=== PATIENT | male | born 1940 | race Caucasian/White ===

== ENCOUNTER 2018-02-28 19:02 | Inpatient (IN) | payer MEDICARE ==
--- NOTE | 2018-02-28 19:16 | ED Physician Chart ---
ED Chief Complaint/HPI - Patient Information Date Seen:: 02/28/18 Time Seen:: 18:45 Chief Complaint:: Agitation History of Present Illness:: onset x 2 days of agitation and aggressive behavior; no report of trauma, H/As, S/T, neck pain, C/P, SOB, Abd. Pain, A/N/V/D/C, SIs, fever, chills, or urinary s /s Historian:: Patient, EMS Review:: Nurse's Note Reviewed, Old Chart Reviewed, EMS run form Reviewed ED Review of Systems - Review of Systems General/Constitutional: No fever, No chills, No weight loss, No weakness, No diaphoresis, No edema, No loss of appetite Skin: No skin lesions, No rash, No bruising Head: No headache, No light-headedness Eyes: No loss of vision, No pain, No diplopia ENT: No earache, No nasal drainage, No sore throat, No tinnitus Neck: No neck pain, No swelling, No thyromegaly, No stiffness, No mass noted Cardio Vascular: No chest pain, No palpitations, No PND, No orthopnea, No edema Pulmonary: No SOB, No cough, No sputum, No wheezing GI: No nausea, No vomiting, No diarrhea, No pain, No melena, No hematochezia, No constipation, No hematemesis G/U: No dysuria, No frequency, No hematuria, No nacturia Musculoskeletal: No bone or joint pain, No back pain, No muscle pain Endocrine: No polyuria, No polydipsia Psychiatric: Prior psych history, Depression, Anxiety, No suicidal ideation, No homicidal ideation, No auditory hallucination, No visual hallucination Hematopoietic: No bruising, No lymphadenopathy Allergic/Immuno: No urticaria, No angioedema Neurological: No syncope, No focal symptoms, No weakness, No paresthesia, No headache, No seizure, No dizziness, Confusion, No vertigo ED Past Medical History - Past Medical History Obtainable: Yes Past Medical History: HTN, Dyslipidemia, Dementia Family History: HTN Social History: Non Smoker, No Alcohol, No Drug Use, , Care Facility Surgical History: None Psychiatricy History: Depression, Bipolar, Dementia Medication: Reviewed ED Physical Exam - Physical Examination General/Constitutional: Awake, Well-developed, well-nourished, Alert, No distress, GCS 15, Non-toxic appearing, Ambulatory Head: Atraumatic Eyes: Lids, conjuctiva normal, PERRL, EOMI Skin: Nl inspection, No rash, No skin lesions, No ecchymosis, Well hydrated, No lymphadenopathy ENMT: External ears, nose nl, TM canals nl, Nasal exam nl, Lips, teeth, gums nl , Oropharynx nl, Tonsils nl Neck: Nontender, Full ROM w/o pain, No JVD, No nuchal rigidity, No bruit, No mass, No stridor Respiratory: Nl effort/Exclusion, Clear to Auscultation, No Wheeze/Rhonchi/Rales Cardio Vascular: RRR, No murmur, gallop, rubs, NL S1 S2, Carotid/Femoral/Distal pulses equal bilaterally GI: No tenderness/rebounding/guarding, No organomegaly, No hernia, Normal BS's, Nondistended, No mass/bruits, No McBurney tenderness : No CVA tenderness Extremities: No tenderness or effusion, Full ROM, normal strength in all extremities, No edema, Normal digits & nails Neuro/Psych: Alert/oriented, DTR's symmetric, Normal sensory exam, Normal motor strength, Judgement/insight normal, Mood normal, Normal gait, No focal deficits Other Neuro/Psych comments:: + Psychomotor Agitation; no SIs; Mood/Affect: Labile Misc: Normal back, No paraspinal tenderness ED Labs/Radiology/EKG Results - Lab Results Comments:: Reviewed - EKG Interpretations EKG Time:: 19:34 Rate & Rhythm: 67; NSR Comments:: RBBB; non-specific st-t changes ED Septic Shock - . Is Septic Shock (SBP<90, OR Lactate>4 mmol\L) present?: No ED Reassessment (Disposition) - Reassessment Reassessment Condition:: Improved - Diagnosis Diagnosis:: Agitation; Psychosis; Medical Clearance; Bipolar Disorder - Aftercare/Follow up Instructions Aftercare/Follow-Up Instructions:: Counseled pt regarding lab results/diagnosis & need follow up, Counseled pt & family regarding lab results/diagnosis & need follow up - Patient Disposition Discharge/Transfer:: Acute Care w/in this hosp Admitted to:: [facility] Condition at Disposition:: Stable, Improved
[2018-02-28 19:39] LABS: % EOSINOPHILS 3.8 % (0.0-5.0); % LYMPHOCYTES 18.1 % (20.0-50.0); % NEUTROPHILS 65.1 % (40.0-80.0); BASOPHILE ABSOLUTE 0.1 Th/cumm (0-0.2); EOSINOPHILE ABSOLUTE 0.2 Th/cmm (0.1-0.4); HEMATOCRIT 34.1 % (41.0-60); HEMOGLOBIN 11.7 gm/dL (12-16); LYMPHOCYTE ABSOLUTE 1.1 Th/cmm (1.5-3.0); MEAN CELL VOLUME 93.7 fl (80-99); MEAN CORPUSCULAR HEMOGLOBIN 32.2 pg (27.0-31.0); MEAN CORPUSCULAR HGB CONC 34.3 pg (28.0-36.0); MEAN PLATELET VOLUME 7.1 fl; MONOCYTE ABSOLUTE 0.7 Th/cmm (0.3-1.0); NEUTROPHILE ABSOLUTE 3.8 Th/cmm (1.8-8.0); PLATELET COUNT 259 Th/cmm (150-400); RED BLOOD COUNT 3.64 Mil/cmm (3.80-5.80); RED CELL DISTRIBUTION WIDTH 15.1 % (11.5-20.0); WHITE BLOOD COUNT 5.9 Th/cmm (4.8-10.8)
[2018-02-28 19:56] LABS: ACETAMINOPHEN < 10.0 ug/mL (10.0-30.0); ALBUMIN 3.3 gm/dL (4.2-5.5); ALKALINE PHOSPHATASE 101 U/L (34-104); ANION GAP 8.4 (7.0-16.0); BILIRUBIN,TOTAL 0.8 mg/dL (0.3-1.0); BUN - UREA NITROGEN 20 mg/dL (7-25); CARBON DIOXIDE 26.6 mEq/L (21.0-31.0); CHLORIDE 106 mEq/L (98-107); CHOLESTEROL 88 mg/dL (<200); CREATININE - SERUM 1.6 mg/dL (0.7-1.3); GLUCOSE 179 mg/dL (70-105); HDL -HIGH DENSITY LIPOPROTEIN 24 mg/dL (23-92); SALICYLATES (ASPIRIN) < 25.0 mg/L (30.0-100.0); SGOT 19 U/L (13-39); SGPT/ALT 10 U/L (7-52); SODIUM SERUM 137 mEq/L (136-145); TOTAL PROTEIN,SERUM 6.6 gm/dL (6.0-8.3); TRIGLYCERIDES 141 mg/dL (<150)
[2018-03-01 00:30] VITALS: BP 165/77
[2018-03-01] MEDS ORDERED: Magnesium Hydroxide (MOM) 30 mL UDC PO PRN (00:30)
[2018-03-01] MEDS ORDERED: Maalox 30 mL Cup PO PRN (00:30)
[2018-03-01] MEDS ORDERED: Non-Formulary Item 1 EA (Apixaban [Eliquis] 5 MG) PO SCH (09:00)
[2018-03-01] MEDS: Multivitamin Tab PO SCH (09:48)
--- NOTE | 2018-03-01 20:12 | History & Physical ---
ADMIT DATE: 03/01/2018 HISTORY OF PRESENT ILLNESS: This patient is well known, came in, was alert and oriented, had abnormal lab values including hemoglobin 11.7 and also creatinine 1.6 and glucose 179. EKG showed left axis deviation, right bundle branch block, T-wave inversion, and the patient had no chest pain or shortness of breath. The patient is being admitted and was cleared for Geropsych Unit for psychosis and aggressive behavior. PAST MEDICAL HISTORY: No other symptoms except for the agitation at this time. The patient has a history of hypertension, dyslipidemia, and dementia. PHYSICAL EXAMINATION: HEAD: Normal. ENT: Normal. NECK: Supple and nontender. LUNGS: Clear. CARDIOVASCULAR SYSTEM: S1 and S2 heard. ABDOMEN: Soft. Bowel sounds are heard. CENTRAL NERVOUS SYSTEM: Grossly normal. DIAGNOSTIC STUDIES: EKG shows right bundle-branch block and ST-T changes. DIAGNOSES: Acute psychosis, agitation, bipolar disorder, history of heart disease, history of dyslipidemia, history of hypertension ____ will follow medically along with Dr. Fairbanks. JOB# [id number]
[2018-03-01 20:42] LABS: A1C % 7.1 % (4.0-6.0)
--- NOTE | 2018-03-01 22:03 | Psychiatric Evaluation ---
DATE OF SERVICE: 03/01/2018 IDENTIFYING DATA: The patient is a 77-year-old male, resident of a [facility]. Information obtained by directly interviewing the patient as well as reviewing the admission papers and they are reliable. JUSTIFICATION OF HOSPITALIZATION: The patient is admitted here on a voluntary basis in view of his agitation and confusion. CHIEF COMPLAINT: "I don't know why they brought me in here 2 days in here, [address], I am getting upset." HISTORY OF PRESENT ILLNESS: This is the first psychiatric hospitalization to this patient to [facility] from [facility]. The patient is reported to have been acutely anxious and having disruptive behavior and agitated. The patient was taken to the [facility], where he has been seen and medically cleared and transferred over here for further stabilization. The patient's daughter has been able to provide some information. ____ the daughter has the power of assistant city attorney. As per the information obtained, the patient has been doing fairly well, but there are periods where he has been getting kind of confused. The patient was supposed to meet his friends and the patient is noted to be confused and the patient also has been having frequent falls and the patient is reported to have been having blockage in the carotid artery and has left carotid artery blockage and is reported to have been having falls. They are worrying about the medications and the left carotid artery blockage leading into these falls. The patient is also reported to have been endorsing that he has been hearing the voices, have been getting worse for the past one week, but during the evaluation, the patient is denying any of those. The patient is stating that he is sleeping well and is eating well and there is no reason for him to be in here. The patient is stating that he can walk back to his place in [place], his place is just behind the [employer]. PAST PSYCHIATRIC HISTORY: None. MEDICAL HISTORY: Physical examination is requested to be done by Dr. Diaz. SUBSTANCE ABUSE HISTORY: None. PHYSICAL OR SEXUAL ABUSE HISTORY: None. LEGAL PROBLEMS: None at this time. SOCIAL HISTORY: The patient is a resident of the [facility]. MENTAL STATUS EXAMINATION: The patient is a 77-year-old, looking his stated age, superficially cooperative. The patient is under denial. The patient is stating that there is no reason for him to be in here. The patient has been denying any command hallucinations. Paranoia is noted. The patient has short-term memory problems and long-term memory seems to be fair so far. The patient is alert and aware that he is in the hospital. DIAGNOSTIC IMPRESSION: AXIS I: Major depressive disorder by history. IB: Dementia and behavioral change, secondary trait. AXIS II: None. AXIS III: As per Dr. Diaz. IMMEDIATE TREATMENT PLAN: The patient is going to be observed on inpatient unit, provided with supportive psychotherapy. The patient is going to be closely monitored and encouraged to verbalize the concerns rather than to act out. Once stabilized, the patient is going to be discharged to [facility], to be followed up on an outpatient basis. JOB# [id number]
[2018-03-02] MEDS: Multivitamin Tab PO SCH (09:24)
--- NOTE | 2018-03-02 23:52 | Progress Notes ---
DATE: 03/02/2018 PSYCHIATRIC PROGRESS NOTE SUBJECTIVE: Staff was spoken to. The patient is interviewed. Mood is noted to be irritable. Affect is constricted. Insight and judgment at this time are noted to be still impaired. Impulse control is noted to be limited. Coping skills are noted to be limited. The patient has been having difficult time to cope with the stress. The patient is isolative and withdrawn. The patient is very confused and has been questioning why he has to be in here and he can walk to [place]. ASSESSMENT: The patient is still confused and getting agitated. PLAN: To continue the patient with the supportive therapy and current medications and follow up. JOB# [id number]
[2018-03-03] MEDS: Multivitamin Tab PO SCH (08:55)
--- NOTE | 2018-03-03 19:51 | Consultation ---
DATE OF CONSULTATION: REFERRING PHYSICIAN: Musa Fairbanks M.D. TYPE OF CONSULTATION: Psychology. HISTORY OF PRESENT ILLNESS: The patient is a 77-year-old male. The patient is a resident of [facility]. The following is by record review and patient self-report. The patient is being admitted due to increased agitation and confusion. According to record review, the staff at the patient's facility report the patient being acutely anxious with disruptive behavior and becoming easily agitated. The patient was taken to [facility] and medically cleared. The patient was then transferred here for stabilization. The patient presents as confused. The patient's daughter is very involved in this patient's care. The patient denies any wish to or any hopelessness or helplessness. The patient denies any suicidal ideation, plan, or intention. The patient seems somewhat guarded and confused. PAST MEDICAL HISTORY: Please see history and physical by Dr. Diaz. PAST PSYCHIATRIC HISTORY: No records are available. No history is reported. Unremarkable. SUBSTANCE ABUSE HISTORY: The patient denies any history. PSYCHOSOCIAL HISTORY: The patient is a resident of [facility]. The patient's daughter is very involved in his care. The patient did not answer questions about occupational or educational history. The patient did not indicate any judaism affiliation. The patient denied any history of physical or sexual abuse. The patient denies any current legal problems. MENTAL STATUS EXAMINATION: The patient appears to be his stated age. Attitude is superficially cooperative. Speech is spontaneous. Eye contact is fair. Mood is anxious. The patient is presenting with some suspiciousness. Paranoid ideation needs further evaluation. The patient denied any auditory or visual hallucinations. The record indicates the patient had endorsed hearing voices in a prior clinical interview. The patient denied any suicidal ideation. The patient's behavior has been redirectable. The patient's sensorium is alert and oriented to self and place. Concentration is [id number]. Impulse control is limited. The patient's immediate memory is intact. He did not participate in the rest of the memory assessment. The patient did not participate in the interpretation of proverbs. Insight is poor. Judgment is poor. DIAGNOSTIC IMPRESSION: AXIS I: 1. History of major depressive disorder. 2. Provisional diagnosis of dementia with behavioral disturbance. AXIS II: Deferred. AXIS III: Per Dr. Diaz. TREATMENT PLAN: The patient has been seen by Dr. Fairbanks for psychiatric evaluation and for the management of the patient's psychotropic medications. We will provide supportive psychotherapy to include reality orientation, differentiation, and integration. We will provide coping strategies for phase of life issues. We will provide motivational enhancement for the patient to become compliant and stay compliant with all aspects of his care and treatment. We will encourage the patient to be able to verbalize his concerns and demonstrate self regulation. Thank you Dr. Fairbanks for this consult and the opportunity to participate in this patient's care. JOB# [id number] JAY
--- NOTE | 2018-03-03 22:47 | Progress Notes ---
DATE: 03/03/2018 SUBJECTIVE: The patient was seen in the hallway. The patient appears to be comfortable, but guarded, episodes of agitation, otherwise the patient appears to be in no acute distress. OBJECTIVE: VITAL SIGNS: Temperature 98.7, heart rate of 70, blood pressure 132/60, respirations of 18, and 96% on room air. HEENT: Head is atraumatic and normocephalic. Eyes: Bilateral conjunctivae are clear. Bilateral pupils are equally round and reactive. NECK: Supple. No JVD. CARDIOVASCULAR: S1 and S2, without murmur. PULMONARY: Clear to auscultation. GASTROINTESTINAL: Soft and nontender without guarding. Positive bowel sounds. MUSCULOSKELETAL: No clubbing. No cyanosis noted. ASSESSMENT: 1. Dementia. 2. Coronary artery disease. 3. Hyperlipidemia. 4. Hypertension. PLAN: We will keep the patient inpatient Psychiatric Unit. We will follow up with psychiatrist to monitor the patient's condition and behavior. Treatment plans were discussed with the patient's nurse. Treatment plans were discussed with Dr. Diaz. JOB# [id number]
--- NOTE | 2018-03-04 01:28 | Progress Notes ---
DATE: 03/03/2018 PROGRESS NOTE SUBJECTIVE: Staff was spoken to. The patient is interviewed. Mood is noted to be irritable. Affect is constricted. The patient is still having difficult time to cope with the stress. The patient is reported to be responding to internal stimuli and has been getting easily agitated. No side effects to the medications are noted. The patient is currently on Cymbalta for the depression and in view of his psychosis, I am adding him to 12.5 mg of the Seroquel at night time and patient is going to be followed up with close monitoring and supportive therapy and will be observing the patient with the addition of this medication. ASSESSMENT: The patient is demented and paranoid. PLAN: To add the Seroquel and followup. JOB# [id number]
[2018-03-04] MEDS: Multivitamin Tab PO SCH (09:46)
--- NOTE | 2018-03-04 11:39 | General Progress Note ---
Subjective - Review of Systems Events since last encounter: patient demented paranoid , no signs of pain Objective - Results Result Diagrams: 02/28/18 19:32 02/28/18 19:32 Recent Labs: Laboratory Last Values WBC 5.9 Th/cmm (4.8-10.8) 02/28/18 19:32 RBC 3.64 Mil/cmm (3.80-5.80) L 02/28/18 19:32 Hgb 11.7 gm/dL (12-16) L 02/28/18 19:32 Hct 34.1 % (41.0-60) L 02/28/18 19:32 MCV 93.7 fl (80-99) 02/28/18 19:32 MCH 32.2 pg (27.0-31.0) H 02/28/18 19:32 MCHC Differential 34.3 pg (28.0-36.0) 02/28/18 19:32 RDW 15.1 % (11.5-20.0) 02/28/18 19:32 Plt Count 259 Th/cmm (150-400) 02/28/18 19:32 MPV 7.1 fl 02/28/18 19:32 Neutrophils % 65.1 % (40.0-80.0) 02/28/18 19:32 Lymphocytes % 18.1 % (20.0-50.0) L 02/28/18 19:32 Monocytes % 12.0 % (2.0-10.0) H 02/28/18 19:32 Eosinophils % 3.8 % (0.0-5.0) 02/28/18 19:32 Basophils % 1.0 % (0.0-2.0) 02/28/18 19:32 Sodium 137 mEq/L (136-145) 02/28/18 19:32 Potassium 4.0 mEq/L (3.5-5.1) 02/28/18 19:32 Chloride 106 mEq/L (98-107) 02/28/18 19:32 Carbon Dioxide 26.6 mEq/L (21.0-31.0) 02/28/18 19:32 Anion Gap 8.4 (7.0-16.0) 02/28/18 19:32 BUN 20 mg/dL (7-25) 02/28/18 19:32 Creatinine 1.6 mg/dL (0.7-1.3) H 02/28/18 19:32 Est GFR ( Amer) TNP 02/28/18 19:32 Est GFR (Non-Af Amer) TNP 02/28/18 19:32 BUN/Creatinine Ratio 12.5 02/28/18 19:32 Glucose 179 mg/dL (70-105) H 02/28/18 19:32 Hemoglobin A1c % 7.1 % (4.0-6.0) H 02/28/18 19:32 Calcium 9.0 mg/dL (8.6-10.3) 02/28/18 19:32 Total Bilirubin 0.8 mg/dL (0.3-1.0) 02/28/18 19:32 AST 19 U/L (13-39) 02/28/18 19:32 ALT 10 U/L (7-52) 02/28/18 19:32 Alkaline Phosphatase 101 U/L (34-104) 02/28/18 19:32 Troponin I 0.02 ng/mL (0.01-0.05) 02/28/18 19:32 Total Protein 6.6 gm/dL (6.0-8.3) 02/28/18 19:32 Albumin 3.3 gm/dL (4.2-5.5) L 02/28/18 19:32 Globulin 3.3 gm/dL 02/28/18 19:32 Albumin/Globulin Ratio 1.0 (1.0-1.8) 02/28/18 19:32 Triglycerides 141 mg/dL (<150) 02/28/18 19:32 Cholesterol 88 mg/dL (<200) 02/28/18 19:32 LDL Cholesterol Direct 46 mg/dL (75-193) L 02/28/18 19:32 HDL Cholesterol 24 mg/dL (23-92) 02/28/18 19:32 TSH 0.90 uIU/ml (0.34-5.60) 02/28/18 19:32 Salicylates < 25.0 mg/L (30.0-100.0) L 02/28/18 19:32 Acetaminophen < 10.0 ug/mL (10.0-30.0) L 02/28/18 19:32 Ethyl Alcohol < 10 mg/dL (0-10) 02/28/18 19:32 RPR NONREACTIVE (NONREACTIVE) 02/28/18 19:32 - Physical Exam Vitals and I&O: Vital Signs Temp 97.9 F 03/04/18 07:01 Pulse 66 03/04/18 09:46 Resp 20 03/04/18 07:01 BP 122/79 03/04/18 09:46 Pulse Ox 97 03/04/18 07:01 Intake & Output 03/03/18 03/04/18 03/04/18 18:59 06:59 18:59 Intake Total 1600 120 Balance 1600 120 Intake: Oral 1600 120 Other: # Voids 4 3 # Bowel Movements 1 Active Medications: Current Medications Acetaminophen (Tylenol) 650 mg PO Q4HR PRN PRN Reason: Mild Pain / Temp above 100 Stop: 04/30/18 00:29 Al Hydrox/Mg Hydrox/Simethicone (Maalox) 30 ml PO Q4HR PRN PRN Reason: GI DISTRESS Stop: 04/30/18 00:29 Digoxin (Lanoxin) 0.125 mg PO DAILY [facility] Stop: 04/30/18 08:59 Last Admin: 03/04/18 09:46 Dose: Not Given Duloxetine HCl (Cymbalta) 30 mg PO DAILY [facility]; Protocol Stop: 04/30/18 08:59 Last Admin: 03/04/18 09:45 Dose: 30 mg Furosemide (Lasix) 20 mg PO DAILY [facility] Stop: 04/30/18 08:59 Last Admin: 03/04/18 09:45 Dose: 20 mg Lorazepam (Ativan) 0.5 mg PO Q4HR PRN; Protocol PRN Reason: Anxiety Stop: 03/31/18 00:29 Losartan Potassium (Cozaar) 100 mg PO DAILY [facility] Stop: 04/30/18 08:59 Last Admin: 03/04/18 09:45 Dose: 100 mg Magnesium Hydroxide (Milk Of Magnesia) 30 ml PO HS PRN PRN Reason: Constipation Metoprolol Succinate (Toprol Xl) 50 mg PO DAILY [facility] Stop: 04/30/18 08:59 Last Admin: 03/04/18 09:46 Dose: 50 mg Multivitamins/Vitamin C (Theragran) 1 tab PO DAILY [facility] Stop: 04/30/18 08:59 Last Admin: 03/04/18 09:46 Dose: 1 tab Quetiapine Fumarate (Seroquel) 12.5 mg PO HS [facility]AYNA[facility]; Protocol Stop: 05/02/18 20:59 Rivaroxaban (Xarelto) 15 mg PO DAILY [facility] Stop: 05/01/18 16:59 Last Admin: 03/04/18 09:42 Dose: 15 mg Zolpidem Tartrate (Ambien) 5 mg PO HS PRN PRN Reason: Insomnia Stop: 04/30/18 00:29 Last Admin: 03/03/18 20:55 Dose: 5 mg Assessment/Plan - Problem List Patient Problems: All Active Problems BEHAVIOR MANAGEMENT (Acute) Nutritional Asmnt/Malnutr-PDOC - Dietary Evaluation Malnutrition Findings (Please click <Entered> for more info): Nutritional Asmnt/Malnutrition Start: 03/03/18 11: 16 Text: Status: Complete Freq: Protocol: Document 03/03/18 11:16 SERA (Rec: 03/03/18 11:24 SERA CANDI- [email or web address]) Nutritional Asmnt/Malnutrition Patient General Information Diagnosis psychosis Pertinent Medical Hx/Surgical Hx HTN, dyslipidemia, dementia Subjective Information Pt asleep at time of visit Current Diet Order/ Nutrition Support diabetic diet Pertinent Medications maalox, lasix, MOM, theragran Pertinent Labs 02/28: Na 137, K 4, Cl 106, CO2 26.6, BUN 20, Cr 1.6, glucose 179, Ca 9.0 Nutritional Hx/Data Height 1.8 m Height (Calculated Centimeters) 180.3 Current Weight (lbs) 106.594 kg Weight (Calculated Kilograms) 106.6 Weight (Calculated Grams) 565498.2 Body Mass Index (BMI) 32.8 Weight Status Obese GI Symptoms GI Symptoms None Last 03/02 Cultural/Ethnic/Spiritism Belief unknown Usual diet at home diabetic Skin Integrity/Comment: ramón score 21 Estimated Nutritional Goals BEE in Kcals: Adj wt of IBW Calories/Kcals/Kg 25-30kcals/day Kcals Calculated 2125-2550kcals/day Protein: Adj wt of IBW Protein g/k-1.2g/kg Protein Calculated 85-102g/day Fluid: ml 2125-2550ml/day (1ml/kcal) Nutritional Problem 1. Problem Problem No nutrition diagnosis at this time Intervention/Recommendation Comments Recommend continuing Diabetic diet Expected Outcomes/Goals Expected Outcomes/Goals PO intake 75% of meals
--- NOTE | 2018-03-04 12:47 | Progress Notes ---
DATE: 03/04/2018 PSYCHIATRIC PROGRESS NOTE SUBJECTIVE: Staff was spoken to. The patient is interviewed. Mood is noted to be irritable. Affect is constricted. The patient is blaming his daughter for keeping him here. The patient has been having difficult time to cope with the stress. The patient has paranoia, but denies any command hallucinations today. No side effects to the medications are noted. The patient has been on 12.5 mg of the Seroquel and has been able to tolerate. PLAN: To increase the dose on medication to 25 mg and follow the patient with supportive therapy. No falls noted at this time. JOB# [id number]
[2018-03-05] MEDS: Multivitamin Tab PO SCH (08:48)
--- NOTE | 2018-03-05 17:16 | Progress Notes ---
DATE: 03/05/2018 SUBJECTIVE: Staff was spoken to. The patient is interviewed. Mood is noted to be irritable. Affect is constricted. The patient denies any command hallucinations, but the patient has been reported to be hallucinating. The patient blaming his daughter stating that she is the reason that he ended up in here and should not be in here. ASSESSMENT: The patient is still impulsive and demented. PLAN: To continue the patient with the supportive therapy and followup. JOB# [id number]
[2018-03-06] MEDS: Multivitamin Tab PO SCH (08:39)
--- NOTE | 2018-03-06 20:48 | Progress Notes ---
DATE: 03/06/2018 PSYCHIATRIC PROGRESS NOTE SUBJECTIVE: Staff was spoken to. The patient is interviewed. Mood is noted to be dysphoric. The patient is stating that he has been having difficult time to understand why he has to be here. The patient's daughter has been spoken to and she is mentioning that the patient is scheduled for a CAT scan and she wants him to be back at the facility tomorrow so that they can proceed with the medical workup. ASSESSMENT: The patient's impulsivity is coming under control, but the patient continues to be demented and confused. PLAN: To continue the patient with supportive therapy and followup. JOB# [id number]
[2018-03-07] MEDS: Multivitamin Tab PO SCH (08:52)
--- NOTE | 2018-03-07 14:57 | General Progress Note ---
Subjective - Review of Systems Events since last encounter: patient demented confused Objective - Results Result Diagrams: 02/28/18 19:32 02/28/18 19:32 Recent Labs: Laboratory Last Values WBC 5.9 Th/cmm (4.8-10.8) 02/28/18 19:32 RBC 3.64 Mil/cmm (3.80-5.80) L 02/28/18 19:32 Hgb 11.7 gm/dL (12-16) L 02/28/18 19:32 Hct 34.1 % (41.0-60) L 02/28/18 19:32 MCV 93.7 fl (80-99) 02/28/18 19:32 MCH 32.2 pg (27.0-31.0) H 02/28/18 19:32 MCHC Differential 34.3 pg (28.0-36.0) 02/28/18 19:32 RDW 15.1 % (11.5-20.0) 02/28/18 19:32 Plt Count 259 Th/cmm (150-400) 02/28/18 19:32 MPV 7.1 fl 02/28/18 19:32 Neutrophils % 65.1 % (40.0-80.0) 02/28/18 19:32 Lymphocytes % 18.1 % (20.0-50.0) L 02/28/18 19:32 Monocytes % 12.0 % (2.0-10.0) H 02/28/18 19:32 Eosinophils % 3.8 % (0.0-5.0) 02/28/18 19:32 Basophils % 1.0 % (0.0-2.0) 02/28/18 19:32 Sodium 137 mEq/L (136-145) 02/28/18 19:32 Potassium 4.0 mEq/L (3.5-5.1) 02/28/18 19:32 Chloride 106 mEq/L (98-107) 02/28/18 19:32 Carbon Dioxide 26.6 mEq/L (21.0-31.0) 02/28/18 19:32 Anion Gap 8.4 (7.0-16.0) 02/28/18 19:32 BUN 20 mg/dL (7-25) 02/28/18 19:32 Creatinine 1.6 mg/dL (0.7-1.3) H 02/28/18 19:32 Est GFR ( Amer) TNP 02/28/18 19:32 Est GFR (Non-Af Amer) TNP 02/28/18 19:32 BUN/Creatinine Ratio 12.5 02/28/18 19:32 Glucose 179 mg/dL (70-105) H 02/28/18 19:32 Hemoglobin A1c % 7.1 % (4.0-6.0) H 02/28/18 19:32 Calcium 9.0 mg/dL (8.6-10.3) 02/28/18 19:32 Total Bilirubin 0.8 mg/dL (0.3-1.0) 02/28/18 19:32 AST 19 U/L (13-39) 02/28/18 19:32 ALT 10 U/L (7-52) 02/28/18 19:32 Alkaline Phosphatase 101 U/L (34-104) 02/28/18 19:32 Troponin I 0.02 ng/mL (0.01-0.05) 02/28/18 19:32 Total Protein 6.6 gm/dL (6.0-8.3) 02/28/18 19:32 Albumin 3.3 gm/dL (4.2-5.5) L 02/28/18 19:32 Globulin 3.3 gm/dL 02/28/18 19:32 Albumin/Globulin Ratio 1.0 (1.0-1.8) 02/28/18 19:32 Triglycerides 141 mg/dL (<150) 02/28/18 19:32 Cholesterol 88 mg/dL (<200) 02/28/18 19:32 LDL Cholesterol Direct 46 mg/dL (75-193) L 02/28/18 19:32 HDL Cholesterol 24 mg/dL (23-92) 02/28/18 19:32 TSH 0.90 uIU/ml (0.34-5.60) 02/28/18 19:32 Salicylates < 25.0 mg/L (30.0-100.0) L 02/28/18 19:32 Acetaminophen < 10.0 ug/mL (10.0-30.0) L 02/28/18 19:32 Ethyl Alcohol < 10 mg/dL (0-10) 02/28/18 19:32 RPR NONREACTIVE (NONREACTIVE) 02/28/18 19:32 - Physical Exam Vitals and I&O: Vital Signs Temp 99.0 F 03/07/18 12:27 Pulse 84 03/07/18 12:27 Resp 18 03/07/18 12:27 BP 111/59 03/07/18 12:27 Pulse Ox 95 03/07/18 12:27 Intake & Output 03/06/18 03/07/18 03/07/18 18:59 06:59 18:59 Intake Total 950 240 600 Balance 950 240 600 Weight (lbs) 106.594 kg Intake: Oral 950 240 600 Other: # Voids 3 3 2 # Bowel Movements 1 0 1 Weight Source Bedscale Active Medications: Current Medications Acetaminophen (Tylenol) 650 mg PO Q4HR PRN PRN Reason: Mild Pain / Temp above 100 Stop: 04/30/18 00:29 Al Hydrox/Mg Hydrox/Simethicone (Maalox) 30 ml PO Q4HR PRN PRN Reason: GI DISTRESS Stop: 04/30/18 00:29 Digoxin (Lanoxin) 0.125 mg PO DAILY [facility] Stop: 04/30/18 08:59 Last Admin: 03/07/18 08:52 Dose: 0.125 mg Duloxetine HCl (Cymbalta) 30 mg PO DAILY [facility]; Protocol Stop: 04/30/18 08:59 Last Admin: 03/07/18 08:52 Dose: 30 mg Furosemide (Lasix) 20 mg PO DAILY [facility] Stop: 04/30/18 08:59 Last Admin: 03/07/18 08:52 Dose: Not Given Lorazepam (Ativan) 0.5 mg PO Q4HR PRN; Protocol PRN Reason: Anxiety Stop: 03/31/18 00:29 Losartan Potassium (Cozaar) 100 mg PO DAILY [facility] Stop: 04/30/18 08:59 Last Admin: 03/07/18 08:53 Dose: Not Given Magnesium Hydroxide (Milk Of Magnesia) 30 ml PO HS PRN PRN Reason: Constipation Metoprolol Succinate (Toprol Xl) 50 mg PO DAILY [facility] Stop: 04/30/18 08:59 Last Admin: 03/07/18 08:53 Dose: Not Given Multivitamins/Vitamin C (Theragran) 1 tab PO DAILY [facility] Stop: 04/30/18 08:59 Last Admin: 03/07/18 08:52 Dose: 1 tab Quetiapine Fumarate (Seroquel) 25 mg PO HS [facility]; Protocol Stop: 05/03/18 20:59 Last Admin: 03/06/18 20:46 Dose: 25 mg Rivaroxaban (Xarelto) 15 mg PO DAILY [facility] Stop: 05/01/18 16:59 Last Admin: 03/07/18 08:51 Dose: 15 mg Zolpidem Tartrate (Ambien) 5 mg PO HS PRN PRN Reason: Insomnia Stop: 04/30/18 00:29 Last Admin: 03/06/18 20:46 Dose: 5 mg General: No acute distress HEENT: Atraumatic Neck: Supple Cardiovascular: Regular rate, Normal S1, Normal S2 Lungs: Clear to auscultation Abdomen: Bowel sounds Assessment/Plan - Problem List Patient Problems: All Active Problems BEHAVIOR MANAGEMENT (Acute) - Plan Plan: as per psych will monitor Nutritional Asmnt/Malnutr-PDOC - Dietary Evaluation Malnutrition Findings (Please click <Entered> for more info): Nutritional Asmnt/Malnutrition Start: 03/03/18 11: 16 Text: Status: Complete Freq: Protocol: Document 03/03/18 11:16 SERA (Rec: 03/03/18 11:24 SERA CHRISTOPHER- [email or web address]) Nutritional Asmnt/Malnutrition Patient General Information Diagnosis psychosis Pertinent Medical Hx/Surgical Hx HTN, dyslipidemia, dementia Subjective Information Pt asleep at time of visit Current Diet Order/ Nutrition Support diabetic diet Pertinent Medications maalox, lasix, MOM, theragran Pertinent Labs 02/28: Na 137, K 4, Cl 106, CO2 26.6, BUN 20, Cr 1.6, glucose 179, Ca 9.0 Nutritional Hx/Data Height 1.8 m Height (Calculated Centimeters) 180.3 Current Weight (lbs) 106.594 kg Weight (Calculated Kilograms) 106.6 Weight (Calculated Grams) 913842.2 Body Mass Index (BMI) 32.8 Weight Status Obese GI Symptoms GI Symptoms None Last BM 03/02 Cultural/Ethnic/Druze Belief unknown Usual diet at home diabetic Skin Integrity/Comment: ramón score 21 Estimated Nutritional Goals BEE in Kcals: Adj wt of IBW Calories/Kcals/Kg 25-30kcals/day Kcals Calculated 2125-2550kcals/day Protein: Adj wt of IBW Protein g/k-1.2g/kg Protein Calculated 85-102g/day Fluid: ml 2125-2550ml/day (1ml/kcal) Nutritional Problem 1. Problem Problem No nutrition diagnosis at this time Intervention/Recommendation Comments Recommend continuing Diabetic diet Expected Outcomes/Goals Expected Outcomes/Goals PO intake 75% of meals
--- NOTE | 2018-03-08 00:25 | Progress Notes ---
DATE: 03/07/2018 PSYCHIATRIC PROGRESS NOTE SUBJECTIVE: Staff was spoken to. The patient is interviewed. Mood is noted to be anxious. Affect is constricted. The patient has been still insisting that his daughter is the one that is responsible for him to get him in here. His daughter has been spoken to. She tells that the patient is scheduled to have a neurological workup schedule for 03/08/2018 and hence the patient is going to be discharged back to the [facility] for further followup of that. The patient at this time is not presenting with any threats to harm self or others and no psychotic symptoms are noted. JOB# [id number]
--- NOTE | 2018-03-10 15:26 | Discharge Summary ---
DATE OF DISCHARGE: 03/07/2018 IDENTIFYING DATA: The patient is a 77-year-old male, resident of [facility]. JUSTIFICATION OF HOSPITALIZATION: The patient is admitted here on a voluntary basis in view of his acute agitation and confusion. DIAGNOSES AT THE TIME OF ADMISSION: AXIS I: A. Major depressive disorder by history. B. Dementia and behavioral change secondary to major depressive disorder by history. AXIS II: None. AXIS III: As per Dr. Diaz. HISTORY OF PRESENT ILLNESS: Please refer to the 03/01/2018 dictation done by me. Physical examination was done by Dr. Diaz and is noted to be significant for history of coronary artery disease, history of dyslipidemia, and hypertension. HOSPITAL COURSE AND RESPONSE TO TREATMENT: The patient has been closely monitored on the inpatient unit, provided with supportive psychotherapy. The patient has been noted to be hallucinating and the patient has been continued on the duloxetine that was given 30 mg and the patient has been placed on the Seroquel 25 mg for his paranoia and hallucination behavior. The patient has been closely monitored for any side effects. The patient started to do fairly well and hence the patient was discharged with recommendation that he is going to be seeking treatment on an outpatient basis. MENTAL STATUS EXAMINATION: At the time of discharge, the patient was noted to be anxious. Affect is appropriate. Not suicidal or homicidal. Insight and judgment are fair. Impulse control is also noted to be fair. The patient is motivated to seek treatment on an outpatient basis. The patient's daughter mentioned that the patient had a cardiac workup scheduled on 03/08/2018 and she wants him to be discharged and hence the patient was discharged on 03/07/2018 with recommendation that he is going to be seeking treatment at the [facility]. DIAGNOSES AT THE TIME OF DISCHARGE: AXIS I: A. Psychotic disorder, not otherwise specified. B. Depressive disorder, not otherwise specified. C. Dementia and behavioral change, secondary trait. AXIS II: None. AXIS III: As per Dr. Diaz. AFTERCARE PLAN: The patient is discharged to [facility] to be followed up on an outpatient basis. PROGNOSIS: At the time of discharge is noted to be fair with the treatment. JOB# [id number]
== END 2018-03-07 13:30 | DRG 885 ==
LOC: ER 19:02 → GERO 21:30
PROVIDERS: ADMIT Psychiatry & Neurology Psychiatry; ATTEND Psychiatry & Neurology Psychiatry
DX: F31.9 Bipolar disorder, unspecified (principal); F23 Brief psychotic disorder; F03.91 Unspecified dementia, unspecified severity, with behavioral disturbance; I10 Essential (primary) hypertension; E78.5 Hyperlipidemia, unspecified; F41.9 Anxiety disorder, unspecified; I45.10 Unspecified right bundle-branch block; I25.10 Atherosclerotic heart disease of native coronary artery without angina pectoris; Z82.49 Family history of ischemic heart disease and other diseases of the circulatory system
CPT/HCPCS: 36415-UA; 80053-TC; 80061-TC; 80320-TC; 80329-TC; 83036-90; 84443-TC; 84484-TC; 85025-TC; 86592-TC; 93005; Z7610